=== PATIENT | female | born 1985 | race Caucasian/White ===

== ENCOUNTER 2019-10-11 15:54 | Inpatient (IN) ==
[2019-10-11] MEDS ORDERED: LACTATED RINGER'S 1,000 ML IV SCH ×2 (16:15→17:05)
[2019-10-11] MEDS ORDERED: CITRIC ACID/SODIUM CITRATE 15 ML UDC PO SCH (16:30)
[2019-10-11] MEDS ORDERED: CEFAZOLIN 2000MG 2,000 MG/15 ML SYR IV SCH (16:30)
--- NOTE | 2019-10-11 16:44 | History & Physical Report ---
Date of Service October 11, 2019 Assessment & Plan (1) No care in current : Patient is 40wk GA with a fetus measuring 36 weeks and anhydramnios. Prior x2. Plan for immediate section; start time expected 6pm per anesthesia due to other patient emergencies occurring at this time on their service. Will attempt to get full lab panel as well as tox screen, COVID rapid test, GBS unknown, swabbed on admission for peds info, but will get preop abx. (2) Oligohydramnios antepartum: (3) Drug dependence affecting , antepartum: (4) Supervision of elderly multigravida, antepartum: (5) Previous delivery affecting , antepartum: Admission and Anticipated Discharge Date Admission Date: October 11, 2019 History of Present Illness Chief Complaint: 34yo (TAB by mifepristone, C/S for NRFHT, RCS both with FOB1, current preg FOB2) at 40.5 wk gestation by certain LMP. Patient presented to office today for NOB visit having received NO prior care in this . She became aware of her in the 8wk range but planned termination as she was using IV meth, FOB was incarcerated, she was depressed, she was smoking 1/2ppd, etc. She never did terminate and became embarrassed about the lack of care as well as fearful of costs of care, so did not reach out for care until recently. She knew she would need a . Therefore she was brought to our office today for the NOB visit and US. The scan showed 36 week , grade 3 placenta and anhydramnios. The patient is not aware of her water being broken. She has no contractions. She does feel FM. She notes her last use of meth was "several months ago." She also used to get her subutex, 2mg PO daily, from [facility] but hasn't seen them "in a long time," and has been getting her subutex on the street but states she is truly and consistently taking only 2mg per day, as well as vitamins most days. She last ate solid food at breakfast and had gatorade in the last few hours. Primary Care Provider: Veronica Mo MD Allergies Allergy/AdvReac Type Severity Reaction Status Date / Time No Known Allergies Allergy Verified 10/11/19 16:13 Home Medications Home Medications Medication Instructions Recorded Confirmed Type prenat.vits,pio,ufp-ezxr-evjed 1 tab PO DAILY 09/21/19 10/11/19 History buprenorphine HCl 2 mg sublingual 2 mg SL DAILY 10/11/19 10/11/19 History tablet Patient History Medical History (Updated 10/11/19 @ 15:26 by Mike Haynes Jr, MD, FACOG) Anxiety and depression Elective Medical Hx of varicella Supervision of normal intrauterine in multigravida Family History (Updated 09/21/19 @ 11:01 by Lissette Tinoco) Other Hypertension Thyroid disease Social History (Updated 09/21/19 @ 11:02 by Lissette Tinoco) Preferred Language: Italian Communication Ability: Effective Beliefs That Will Affect Care: None and Mandaen Mandaen Beliefs: Congregational marital status: Single marital status details: FOJavier Pierson (40) [phone] Current Living Situation: Family Current Living Situation Comment: lives with FOB, no pets current occupational status: unemployed Other Information That Helps Us Care for You: No Feels Safe at Home: Yes Safety Concerns: Feels Safe At This Time Smoking Status: Current every day smoker Tobacco Type: cigarettes ; Cigarettes Per Day: 5 ; Do You Dip or Chew Tobacco: No ; Second Hand Exposure: Yes ; Tobacco Cessation Education Requested by Patient: Yes Hx Alcohol Use: No Hx Substance Use: Yes substance use type: IV drugs and methamphetamine Last Used Substance: Unknown Last Used Substance Other:: "months ago" Review of Systems All systems reviewed & are unremarkable except as noted in HPI & below Physical Exam Constitutional: WD/WN, vitals as above Eyes: PERRL, conjunctivae normal, anicteric sclerae ENMT: external ear and nose normal, oropharynx normal Neck: supple Respiratory: normal respiratory effort and able to speak in complete sentences; no respiratory distress Cardiovascular: Rate/Rhythm: regular rate and regular rhythm Gastrointestinal (Abdomen): Gravid / AGA, nontender Musculoskeletal: no cyanosis or clubbing, extremities motor strength 5/5 Skin: no rashes, warm and dry Neurologic: patellar DTR's 2+ bilat, sensation intact Psychiatric: A+Ox3, euthymic affect Genitourinary: Speculum/Bimanual Exam: no vaginal lesions, no vaginal bleeding and uterus nontender OB Exam Abdomen: + vertex and + estimated weight (5-6lb) OB Exam Monitor Tracing: + external FHT monitor used, + external uterine monitor used and + category I Lymphatic: no cervical or axillary lymphadenopathy Code Status & VTE Plan VTE Prophylaxis Plan VTE Prophylaxis will be ordered: Yes Coding Level of Care Code None Diagnoses No care in current O09.30 Oligohydramnios antepartum O41.00X0 Drug dependence affecting , antepartum O99.320 Supervision of elderly multigravida, antepartum O09.529 Previous delivery affecting , antepartum O34.219
[2019-10-11 16:46] LABS: Basophils # (auto) 0.02 K/uL (0-0.2); Basophils % (auto) 0.1 %; Eosinophils # (auto) 0.12 K/uL (0-0.5); Eosinophils % (auto) 0.8 %; Hematocrit (blood only) 29.9 % (37-47); Hemoglobin 9.8 g/dL (12.0-16.0); Immature Granulocytes # (auto) 0.08 K/uL (0.00-0.02); Immature Granulocytes % (auto) 0.5 %; Lymphocytes # (auto) 4.04 K/uL (1.2-3.4); Lymphocytes % (auto) 25.9 %; Mean Corpuscular Hemoglobin 26.2 pg (25-34); Mean Corpuscular Volume 79.9 fL (80-100); Mean Platelet Volume 10.8 fL (7.4-10.4); Monocytes # (auto) 0.85 K/uL (0.11-0.59); Monocytes % (auto) 5.5 %; Neutrophils # (auto) 10.47 K/uL (1.4-6.5); Neutrophils % (auto) 67.2 %; Platelet Count 280 K/uL (130-400); RDW Coefficient of Variation 13.4 % (11.5-14.5); RDW Standard Deviation 38.8 fL (36.4-46.3); Red Blood Count 3.74 M/uL (4.2-5.4); White Blood Count 15.58 K/uL (4.8-10.8)
[2019-10-11 17:05] LABS: Mean Corpuscular Hgb Conc 32.8 g/dL (32-36)
[2019-10-11 17:24] LABS: Rubella IgG Antibody Immune (Immune)
[2019-10-11 17:25] LABS: Hepatitis B Surface Antigen Neg (Neg)
[2019-10-11 17:55] LABS: Appearance Urine Clear (Clear); Bilirubin Urine Negative (Negative); Blood Urine Negative (Negative); Color Urine Yellow; Glucose Urine UA Negative (Negative); Ketones Urine Negative (Negative); Leukocyte Esterase Urine Negative (Negative); Nitrite Urine Negative (Negative); Protein Urine Negative (Negative); Specific Gravity Urine 1.005 (1.000-1.030); Urobilinogen Urine Negative (Negative); pH Urine 7.5 (4.5-7.5)
[2019-10-11] MEDS ORDERED: BUPIVACAINE 0.5 % 5 MG/1 ML MPF 30ML VIAL ONE (18:01)
[2019-10-11] MEDS ORDERED: BUPIVACAINE LIPOSOME 1.3% 266 MG/20 ML VIAL ONE (18:01)
--- NOTE | 2019-10-11 18:14 | Anesthesiology Consultation ---
Date of Service October 11, 2019 Assessment & Plan (1) Encounter for pre-operative examination: Chart Review Chart Review: Acceptable Risk for Surgery and Patient NOT seen in Pre Admission Testing Consults Requested none ASA ASA3 Proposed Anesthesia Anesthesia Type: MAC Spinal Regional Regional Laterality: Bilateral Site: Transversus Abdominal Plane Risk / Benefits Reviewed With: PT / POA / Parent / Guardian, Accepts Plan and Informed Consent Obtained History Surgery Operation Date: 10/11/19 16:10 Proposed Procedures p Section in LD - Grace Majano MD Operation Date: 10/12/19 07:30 Proposed Procedures p Section - Mike Haynes Jr, MD, FACOG Height/Weight Height: 5 ft 3 in Weight: 63.957 kg Allergies Allergy/AdvReac Type Severity Reaction Status Date / Time No Known Allergies Allergy Verified 10/11/19 16:13 Medications Home Medications Medication Instructions Recorded Confirmed Last Taken prenat.vits,pio,yvr-wzqi-leohs 1 tab PO DAILY 09/21/19 10/11/19 10/10/19 buprenorphine HCl 2 mg sublingual 2 mg SL DAILY 10/11/19 10/11/19 10/11/19 tablet Active Medications Generic Name Dose Route Start Last Admin Trade Name Freq PRN Reason Stop Dose Admin Citric Acid/Sodium Citrate 30 ml 10/11/19 16:30 10/11/19 18:12 Bicitra PO 10/11/19 23:59 30 ml TODAY@1630 MARIAN Administration Cefazolin Sodium 2,000 mg in 15 mls @ 3.75 mls/min 10/11/19 16:30 10/11/19 18:12 Ancef 2000mg IV 10/11/19 23:59 3.75 mls/min TODAY@1630 MARIAN Administration Protocol Lactated Ringer's 1,000 mls @ 125 mls/hr 10/11/19 17:05 10/11/19 17:31 Lr IV 11/10/19 17:04 125 mls/hr .Q8H MARIAN Administration NPO Date Last Intake of Fluids: 10/11/19 Time Last Intake of Fluids: 16:00 Date Last Intake of Solids: 10/11/19 Time Last Intake of Solids: 14:00 Past Medical History Medical History Anxiety and depression Elective Medical Hx of varicella Supervision of normal intrauterine in multigravida Exercise / Class Metabolic Activity II 4-5 Yardwork/Stairs/Walk up hill Past Family History Family History Other Hypertension Thyroid disease Past Surgical History Surgical History delivery delivered H/O shoulder surgery Tonsillectomy planned Past Anesthesia History No Hx of Anesthesia Complications and No Family Hx of Anesthesia Complications History of PONV No Hx of PONV and No Hx of Motion Sickness Social History Smoking Status: Current every day smoker tobacco type: cigarettes Smoking cigarettes per day: 5 Do You Dip or Chew Tobacco: No Hx Alcohol Use: No Hx Substance Use: Yes substance use type: IV drugs and methamphetamine Last Used Substance: Unknown Last Used Substance Other:: "months ago" Physical Exam Vital Signs Last Vital Signs Temp 37.1 C 10/11/19 16:35 Pulse 87 10/11/19 18:06 Resp 18 10/11/19 16:35 BP 126/75 10/11/19 17:32 Pulse Ox 98 10/11/19 18:06 ENMT Mouth: no dentition abnormality Thyromental Distance: > or= 3.5 Finger Breadths Mallampati Class: II Neck normal visual inspection Respiratory normal respiratory effort Auscultation: lungs clear to auscultation bilaterally Cardiovascular Rate/Rhythm: regular rate and regular rhythm Psychiatric Orientation: alert Testing Laboratory Results 10/11/19 16:26 Urine Color Yellow 10/11/19 17:25 Urine Appearance Clear (Clear) 10/11/19 17:25 Urine pH 7.5 (4.5-7.5) 10/11/19 17:25 Ur Specific Ringling 1.005 (1.000-1.030) 10/11/19 17:25 Urine Protein Negative (Negative) 10/11/19 17:25 Urine Glucose (UA) Negative (Negative) 10/11/19 17:25 Urine Ketones Negative (Negative) 10/11/19 17:25 Urine Nitrite Negative (Negative) 10/11/19 17:25 Ur Leukocyte Esterase Negative (Negative) 10/11/19 17:25 Blood Type A Positive 10/11/19 16:25 Antibody Screen NEGATIVE 10/11/19 16:25
[2019-10-11] MEDS ORDERED: ONDANSETRON INJ 2 MG/ML 2 ML VIAL ONE (18:15)
[2019-10-11] MEDS ORDERED: OXYTOCIN 10 UNITS/ML VIAL ONE (18:15)
[2019-10-11] MEDS ORDERED: MoRPHine SULFATE PF 1 MG/ML 10 ML AMP/VIAL ONE (18:15)
[2019-10-11 18:19] LABS: Amphetamines+Metham, Urine Neg (Neg); Barbiturates, Urine Neg (Neg); Benzodiazepine, Urine Neg (Neg); Cocaine, Urine Neg (Neg); MDMA (Ecstacy), Urine Neg (Neg); Methadone, Urine Neg (Neg); Opiate, Urine Neg (Neg); Phencyclidine, Urine Neg (Neg)
[2019-10-11] MEDS ORDERED: fentaNYL citrate 100 MCG/2 ML VIAL ONE (18:46)
[2019-10-11 19:06] LABS: Base Excess Cord Arterial Bld 1.4 mEq/L (-9-1.8); CO2 Cord Arterial Blood 52 mmHg (39.1-73.5); HCO3 Cord Arterial Blood 28 mmol/L (19.7-28.5); PO2 Cord Arterial Blood 20 mmHg (4.1-31.7); pH Cord Arterial Blood 7.35 (7.1-7.38)
[2019-10-11 19:10] LABS: Base Excess Cord Venous Blood -0.4 mEq/L (-7.7-1.9); Cord Venous Blood HCO3 25 mmol/L (18.4-26.8); Cord Venous Blood PCO2 41 mmHg (30.4-57.2); Cord Venous Blood PO2 27 mmHg (14.1-43.3); Cord Venous Blood pH 7.39 (7.20-7.44)
[2019-10-11 19:12] LABS: Oxygen Sat Cord Arterial Blood < 60.0 % (<60)
--- NOTE | 2019-10-11 19:17 | Operative Report ---
PG Post Operative Report Pre & Post Diagnosis Operation Date: 10/11/19 18:00 Pre-Op Diagnosis: Hx of Section x2; no care; anhydramnios Post-Op Diagnosis: Hx of Section x2; no care; anhydramnios; Operation Date: 10/12/19 07:30 <No data on this case meets the specified criteria> I identified the patient and participated in the time-out.: Yes Procedure Operation Date: 10/11/19 18:00 Actual Procedures p Section in LD; delivery of live male child at 1837 - Grace Majano MD Operation Date: 10/12/19 07:30 <No data on this case meets the specified criteria> Surgeon Grace Majano MD Vc++ Developer Ivy Estimated Blood Loss 600 Findings Consistent with Post-Op Diagnosis Specimens Cord blood, Cord gases, Placenta for exam Anesthesia Type Spinal Complications none Disposition Accompanied Patient To Recovery: Yes Disposition: L&D Description of Procedure The patient was brought to the operating room and placed on the table in the supine position with a leftward tilt, then prepped and draped in standard sterile fashion. A hard time out was taken prior to proceeding. A pfannensteil incision was created sharply and carried down to the fascia using bovie electrocautery. The fascia was nicked and then extended using selby scissors. The edges of the fascia were grasped with Remigio clamps and elevated, then sharply and bluntly dissected off the underlying rectus. The midline of the rectus was identified and bluntly . The peritoneum was bluntly entered, and this entry was extended using pressure from the surgeon's hands. The bladder retractor was placed and the lower uterine segment was examined and found to be well developed. A bladder flap was created and the retractor was replaced behind this flap to protect the bladder. A transverse lower uterine incision was then created, with final entry to the uterine cavity made in a blunt manner with the surgeon's finger. Thick meconium was encountered; there was minimal if any liquid. The head was elevated to the incision and delivered using mild fundal pressure. The cord was doubly clamped and cut, then the vigorous infant was taken to the warmer for dinking machine operator care. The placenta was manually extracted, then the uterus was gently exteriorized from the maternal abdomen. The cavity was cleared of clot and debris using a dry lap sponge. The angles of the incision were identified with allis clamps, and the hysterotomy was then repaired in running locked fashion using 0-vicryl suture, followed by a second imbricating layer. Chelsey was applied to ensure lasting hemostasis. Note that the lower uterine segment was extremely thin and this was discussed with the patient, along with the risks this may confer if she carries future pregnancies. The tubes and ovaries were examined and found to be normal bilaterally. The posterior gutter was irrigated and cleared of clot and debris. The uterus was then gently re-internalized to the abdomen. Lateral gutters were cleared of clot and debris using a damp lap sponge, and a final exam of the hysterotomy revealed good hemostasis. The rectus muscles were allowed to reapproximate naturally. The angle of the fascia was grasped with a Remigio clamp and the fascia was then repaired in running non-locked fashion with 1- vicryl suture. At the completion of repair, the fascia was examined and found to be free of any defect. The subcutaneous tissue was copiously irrigated and then reapproximated using 3-0 chromic. The skin was then closed using 4-0 monocryl in a running subcuticular fashion and a dermabond dressing was applied. The hart was noted to be draining clear yellow urine as the patient was transferred back to her recovery room. I attest to the content of the Intraoperative Record and any orders documented therein. Any exceptions are noted below.
[2019-10-11] MEDS ORDERED: BENZOCAINE 20% AER SPR 82.5 GM CAN EXT PRN (19:23)
[2019-10-11] MEDS ORDERED: DIPHTHERIA/TETANUS/PERTUSSIS 0.5 ML SYR/VIAL IM ONE (19:23)
[2019-10-11] MEDS ORDERED: SUPERCREAM 0.870% 15 GM JAR EXT PRN (19:23)
[2019-10-11] MEDS ORDERED: ONDANSETRON INJ 2 MG/ML 2 ML VIAL IV PRN ×2 (19:23→21:37)
[2019-10-11] MEDS ORDERED: HYDROCORTISONE ACETATE 25 MG SUPP PR PRN (19:23)
[2019-10-11] MEDS ORDERED: MAGNESIUM HYDROXIDE SUSP 30 ML UDC PO PRN (19:23)
[2019-10-11] MEDS ORDERED: SENNA 8.6 MG TAB PO PRN (19:23)
[2019-10-11] MEDS ORDERED: OXYTOCIN 30 UNITS in LACTATED RINGER'S 1,000 ML IV SCH (19:30)
--- NOTE | 2019-10-11 19:40 | Anesthesiology Progress Note ---
Date of Service October 11, 2019 Anesthesia Post Procedure Vital Signs Vital Signs: Temp Pulse Resp BP Pulse Ox 10/11/19 19:35 69 177/83 H 10/11/19 19:34 74 100 10/11/19 19:30 93 H 81 L 10/11/19 19:29 81 100 10/11/19 19:24 84 144/90 H 100 10/11/19 18:06 87 98 10/11/19 18:01 89 98 10/11/19 17:56 80 98 10/11/19 17:51 93 H 98 10/11/19 17:46 93 H 99 10/11/19 17:41 75 97 10/11/19 17:36 74 97 10/11/19 17:32 85 126/75 10/11/19 17:31 93 H 100 10/11/19 17:16 84 97 10/11/19 17:11 97 H 98 10/11/19 17:06 80 98 10/11/19 17:01 85 98 10/11/19 16:56 96 H 98 10/11/19 16:51 93 H 97 10/11/19 16:46 89 98 10/11/19 16:35 37.1 C 18 Transfer of Care Handoff Completed per policy Notes Mental Status: alert / awake / arousable Patient Amnestic to Procedure: Yes Nausea / Vomiting: adequately controlled Pain: adequately controlled Airway Patency, RR, SpO2: stable & adequate BP & HR: stable & adequate Hydration State: stable & adequate Neuraxial Anesthesia: was administered and sensory block is resolving Anesthetic Complications: no major complications apparent Notes: block working well in pacu
[2019-10-11 20:12] LABS: INR 0.9 (0.9-1.1); Partial Thromboplastin Ratio 0.9; Partial Thromboplastin Time 25.9 Seconds (21.0-31.0); Prothrombin Time 9.6 Seconds (9.0-12.0)
[2019-10-11 20:37] LABS: Alanine Aminotransferase 10 U/L (12-78); Albumin Level 2.4 gm/dl (3.4-5.0); Aspartate Aminotransferase 8 U/L (15-37); BUN Creatinine Ratio 6.5 (10-20); Bilirubin Direct < 0.1 mg/dl (0-0.2); Blood Urea Nitrogen 4 mg/dl (7-18); Calcium 8.5 mg/dl (8.5-10.1); Carbon Dioxide 25 mmol/L (21-32); Chloride 105 mmol/L (98-107); Creatinine Clr Calc Pharmacy 117.8 ml/min; Est GFR (African American) 136.9; Est GFR (Non-African American) 118.1; Glucose 78 mg/dl (70-99); Potassium 3.8 mmol/L (3.5-5.1); Sodium 136 mmol/L (136-145)
[2019-10-11 20:38] LABS: Albumin Globulin Ratio 0.5 (0.9-2); Bilirubin,Total 0.3 mg/dl (0.2-1); Globulin 4.8 gm/dl (2.5-4.0); Total Protein 7.2 gm/dl (6.4-8.2)
[2019-10-11 20:47] LABS: Alkaline Phosphatase 270 U/L (45-117)
[2019-10-11] MEDS: DOCUSATE SODIUM 100 MG CAP PO SCH ×2 (21:33→21:54)
[2019-10-11] MEDS: SIMETHICONE 80 MG CHEW PO SCH (21:33)
[2019-10-11] MEDS ORDERED: MoRPHine SULFATE PF 1 MG/ML 10 ML AMP/VIAL INT SPINAL ONE (21:37)
[2019-10-11] MEDS ORDERED: MoRPHine SULFATE 2 MG/ML CARP IV PRN (21:37)
[2019-10-11] MEDS ORDERED: ePHEDrine sulfate 50 MG/ML AMP IV PRN (21:37)
[2019-10-11] MEDS ORDERED: PROMETHAZINE HCL 6.25 MG in SODIUM CHLORIDE 0.9% 50 ML IV PRN (21:37)
[2019-10-11] MEDS ORDERED: NALOXONE HCL 0.08 MG in SYRINGE 1.8 ML IV PRN (21:37)
[2019-10-11] MEDS ORDERED: NALOXONE HCL 0.4 MG/1 ML VIAL/CARP IV PRN (21:37)
[2019-10-11] MEDS ORDERED: DiphenhydrAMINE HCL 50 MG/ML VIAL IV PRN (21:37)
[2019-10-11] MEDS ORDERED: KETOROLAC 30 MG/ML VIAL IV PRN (21:37)
[2019-10-11] MEDS ORDERED: LACTATED RINGER'S 500 ML IV PRN (21:37)
[2019-10-11] MEDS ORDERED: NALOXONE HCL 1 MG in SODIUM CHLORIDE 0.9% 1000ML 1,000 ML IV PRN (21:37)
[2019-10-11] MEDS ORDERED: HYDROmorphone INJ 0.5 MG/0.5 ML SYR IV PRN (21:37)
[2019-10-11] MEDS ORDERED: MEPERIDINE HCL 25 MG/ML CARP/VIAL IV PRN (21:37)
[2019-10-11] MEDS ORDERED: SODIUM CHLORIDE 0.9% 1000ML 1,000 ML IV SCH (21:45)
[2019-10-11] MEDS ORDERED: NO NARCOTICS OR SEDATIVES SCH (21:45)
--- NOTE | 2019-10-11 21:56 | Hospitalist Consultation ---
Date of Consultation October 11, 2019 Assessment & Plan (1) Drug dependence affecting , antepartum: Alexandria Kapoor is a 34y/o F s/p RLT at 40 weeks 5 days, 2 prior C-sections, this complicated by no care, use of IV methamphetamines, use of Subutex bought off the street. Drug-dependence during : - Patient states he was using 2 mg Subutex daily, she has been using this daily more or less since she was in her early to mid 20s - Previously was receiving 2 mg p.o. Subutex from [facility] in [place] - Discussed administration with pharmacy, as team does not have licensed provider for Subutex - Will continue 2 mg Subutex for 72 hours during hospitalization; after this time patient will need to have following doses from established licensed provider - As she was not formally kicked out of [facility], consideration should be to restart her care through them first as this might expedite the process - Case management consulted for establishment of child services following no care during Hep C antibody test positive: - Following last , patient had negative hep C testing at that time. - Does have known exposure with previous partner having hep C, last saw him 2 years ago - Current partner (FOB) does not have confirmed hep C - We will need established care with PCP for future treatments - Hep C RNA qualitative pending - Uncertain timeline of when retroviral treatments for Hep C can be started post s/p : - POD #0, routine care per OB group (2) Hepatitis C antibody test positive: (3) Supervision of elderly multigravida, antepartum: Supervising Physician Co-Signing Physician Notes Patient seen and examined, chart reviewed, case discussed with Dr. Barrientos and I agree with his assessment and plan as documented above. Briefly, patient is a 34yo female s/p RLT at 40 weeks and 5 days. Patient received no care. Patient with history of substance abuse, in the remote past she used IV opiates, most recently IV methamphetamine. She reports being on Subutex since the age of 21. She initially obtained them from her boyfriend who had a prescription - they would split the pills between them. She was later seen at [facility] in [place] but has stopped being seen there. She reports buying the Subutex off the street - she typically buys 8mg pills and splits them into quarters and takes appx 2mg daily. On exam she is well appearing, NAD, abdominal incision well approximated, no bleeding/drainage/dehiscence HEENT - NC/AT, PERRL, EOMI, MMM Heart - +S1/S2, regular, no m/r/g Lungs - CTA Abd - +BS, low transverse incision well approximated with glue, no bleeding/drainage/dehiscence Ext - no edema Labs and images reviewed Assessment/Plan: -Will continue Subutex while inpatient - 2mg po daily. Will place Case management consultation to assist with outpatient followup, preferably at [facility] as she is known to that site -Outpatient workup and treatment of HCV -Remainder of recommendations as above History of Present Illness Reason for Consultation: Subutex, HepC Attending Physician: Grace Majano MD History of Present Illness Alexandria Kapoor is a 34y/o F s/p RLT at 40 weeks 5 days, 2 prior C- sections, this complicated by no care, use of IV methamphetamines, use of Subutex bought off the street. Hospitalist consulted for Subutex management and recent hep C diagnosis. Throughout this she continue to use Subutex 2 mg daily, she states that she gets 4 days worth at a time splits it up into quarters and then will take each quarter daily. Previously was on Subutex through [facility] in [place]; however, stopped attending his appointments when she restarted using IV drugs as she knew she would not pass their urine drug test. Believes the last time she was seen by [facility], was approximately 6+ months ago. States that she has been on Subutex daily at minimum since her mid 20s, with maximum amount of time being off Subutex being 1 to 2 days. Most recently this was 2 weeks ago, during that time she did not feel any ill effects from being off the Subutex, as she continues to have troubles and shakes and sweats regardless of the dose of Subutex that she takes daily. Is aware that her previous partner was positive for hepatitis C, but has not seen him in the last 2 years. Knows that following her second (2009), she tested negative for hepatitis C at that time, but continue to be without partner up until 2 years ago. They would sporadically utilize IV drugs, and this has continued for the patient following the break-up of that relationship. Current partner stated to be hepatitis C negative. Denies jaundice, yellowing of skin or eyes, increased abdominal girth (outside of ) upper abdominal pain, lower extremity edema, cough, shortness of breath, fatigue, malaise, easy bruisability, easy bleeding. Social: Admits to half pack a day tobacco use, admits to IV meth use (last use months ago), denies marijuana, cocaine, ecstasy, heroin. Family history: Hypothyroidism Allergies Allergy/AdvReac Type Severity Reaction Status Date / Time No Known Allergies Allergy Verified 10/11/19 16:13 Home Medications Home Medications Medication Instructions Recorded Confirmed Type prenat.vits,pio,eed-bqlz-mynyt 1 tab PO DAILY 09/21/19 10/11/19 History buprenorphine HCl 2 mg sublingual 2 mg SL DAILY 10/11/19 10/11/19 History tablet Patient History Medical History (Updated 10/11/19 @ 21:35 by Júnior Barrientos MD) Anxiety and depression Elective Medical Hx of varicella Supervision of normal intrauterine in multigravida Surgical History (Updated 10/11/19 @ 19:07 by Corrine Vizcaino RN) delivery delivered H/O shoulder surgery Hx of tonsillectomy Tonsillectomy planned Family History Other Hypertension Thyroid disease Social History (Updated 09/21/19 @ 11:02 by Lissette Tinoco) Preferred Language: Citizen Of [place] Communication Ability: Effective Beliefs That Will Affect Care: None and Rastafarian Rastafarian Beliefs: Taoism marital status: Single marital status details: CORNELL Pierson (40) [phone] Current Living Situation: Family Current Living Situation Comment: lives with FOB, no pets current occupational status: unemployed Other Information That Helps Us Care for You: No Feels Safe at Home: Yes Safety Concerns: Feels Safe At This Time Smoking Status: Current every day smoker Tobacco Type: cigarettes ; Cigarettes Per Day: 5 ; Do You Dip or Chew Tobacco: No ; Second Hand Exposure: Yes ; Tobacco Cessation Education Requested by Patient: Yes Hx Alcohol Use: No Hx Substance Use: Yes substance use type: IV drugs and methamphetamine Last Used Substance: Unknown Last Used Substance Other:: "months ago" Review of Systems Review of Systems: All systems reviewed & are unremarkable except as noted in HPI & below Physical Exam Constitutional: WD/WN, vitals as above Eyes: PERRL, conjunctivae normal, anicteric sclerae Respiratory: normal respiratory effort, lungs clear to auscultation Cardiovascular: Rate/Rhythm: regular rate and regular rhythm Heart Sounds: no gallop, no murmur and no cardiac rub Vessels: no JVD Extremities: no pedal edema Gastrointestinal (Abdomen): Inspection/Auscultation: normal bowel sounds and + abdominal surgical incision (low-transverse intact with surgical glue); abdomen not distended Percussion/Palpation: + abdomen tender (over uterine fundus) and abdomen soft; no hepatosplenomegaly Skin: no rashes, warm and dry Psychiatric: A+Ox3, euthymic affect Results & Data Results & Data ([facility] [place]) Vital Signs (Past 12 Hours) Vital Signs Temp Pulse Resp BP Pulse Ox 10/11/19 21:26 80 195/96 H 10/11/19 21:24 86 97 10/11/19 21:19 72 97 10/11/19 21:14 66 97 10/11/19 21:09 75 97 10/11/19 21:04 77 100 10/11/19 20:59 87 99 10/11/19 20:56 83 132/113 H 10/11/19 20:54 83 99 10/11/19 20:49 77 99 10/11/19 20:44 72 98 10/11/19 20:39 68 99 10/11/19 20:34 69 99 10/11/19 20:30 18 10/11/19 20:29 71 100 10/11/19 20:25 69 18 182/100 H 10/11/19 20:24 70 99 10/11/19 20:19 79 99 10/11/19 20:15 66 18 182/99 H 10/11/19 20:14 66 99 10/11/19 20:09 75 98 10/11/19 20:06 67 182/82 H 10/11/19 20:05 18 10/11/19 20:04 73 99 10/11/19 19:59 73 98 10/11/19 19:55 80 18 166/89 H 10/11/19 19:54 69 98 10/11/19 19:49 76 99 10/11/19 19:45 71 18 173/87 H 10/11/19 19:44 69 100 10/11/19 19:39 75 100 10/11/19 19:35 69 18 177/83 H 10/11/19 19:34 74 100 10/11/19 19:30 93 H 81 L 10/11/19 19:29 81 100 10/11/19 19:25 36.7 C 16 10/11/19 19:24 84 144/90 H 100 10/11/19 18:06 87 98 10/11/19 18:01 89 98 10/11/19 17:56 80 98 10/11/19 17:51 93 H 98 10/11/19 17:46 93 H 99 10/11/19 17:41 75 97 10/11/19 17:36 74 97 10/11/19 17:32 85 126/75 10/11/19 17:31 93 H 100 10/11/19 17:16 84 97 10/11/19 17:11 97 H 98 10/11/19 17:06 80 98 10/11/19 17:01 85 98 10/11/19 16:56 96 H 98 10/11/19 16:51 93 H 97 10/11/19 16:46 89 98 10/11/19 16:35 37.1 C 18 Laboratory Results 10/11/19 10/11/19 10/11/19 Range/Units 18:37 18:37 17:25 WBC (4.8-10.8) K/uL RBC (4.2-5.4) M/uL Hgb (12.0-16.0) g/dL Hct (37-47) % MCV (80-100) fL MCH (25-34) pg MCHC (32-36) g/dL RDW Std Deviation (36.4-46.3) fL RDW Coeff of Pedro (11.5-14.5) % Plt Count (130-400) K/uL MPV (7.4-10.4) fL Immature Gran % (Auto) % Neut % (Auto) % Lymph % (Auto) % [place] % (Auto) % Eos % (Auto) % Baso % (Auto) % Neut # (Auto) (1.4-6.5) K/uL Lymph # (Auto) (1.2-3.4) K/uL [place] # (Auto) (0.11-0.59) K/uL Eos # (Auto) (0-0.5) K/uL Baso # (Auto) (0-0.2) K/uL Immature Gran # (Auto) (0.00-0.02) K/uL PT (9.0-12.0) Seconds INR (0.9-1.1) APTT (21.0-31.0) Seconds PTT Ratio Cord ABG pH 7.35 (7.1-7.38) Cord ABG pCO2 52 (39.1-73.5) mmHg Cord ABG pO2 20 (4.1-31.7) mmHg Cord ABG HCO3 28 (19.7-28.5) mmol/L Cord ABG Base Excess 1.4 (-9-1.8) mEq/L Cord ABG O2 Sat < 60.0 (<60) % Cord VBG pH 7.39 (7.20-7.44) Cord VBG pCO2 41 (30.4-57.2) mmHg Cord VBG pO2 27 (14.1-43.3) mmHg Cord VBG HCO3 25 (18.4-26.8) mmol/L Cord VBG Base Excess -0.4 (-7.7-1.9) mEq/L Cord VBG O2 Sat 62.0 (<68) % Barometric Pressure 730.0 730.2 mm/Hg Blood Gas Comments TRINIDAD TRINIDAD Sodium (136-145) mmol/L Potassium (3.5-5.1) mmol/L Chloride (98-107) mmol/L Carbon Dioxide (21-32) mmol/L Anion Gap (3-11) BUN (7-18) mg/dl Creatinine (0.6-1.2) mg/dl Est Cr Clr Drug Dosing ml/min Est GFR ( Amer) Est GFR (Non-Af Amer) BUN/Creatinine Ratio (10-20) Glucose (70-99) mg/dl Estimat Average Glucose Hemoglobin A1c Calcium (8.5-10.1) mg/dl Total Bilirubin (0.2-1) mg/dl Direct Bilirubin (0-0.2) mg/dl AST (15-37) U/L ALT (12-78) U/L Alkaline Phosphatase (45-117) U/L Total Protein (6.4-8.2) gm/dl Albumin (3.4-5.0) gm/dl Globulin (2.5-4.0) gm/dl Albumin/Globulin Ratio (0.9-2) Urine Color Urine Appearance (Clear) Urine pH (4.5-7.5) Ur Specific [place] (1.000-1.030) Urine Protein (Negative) Urine Glucose (UA) (Negative) Urine Ketones (Negative) Urine Blood (Negative) Urine Nitrite (Negative) Urine Bilirubin (Negative) Urine Urobilinogen (Negative) Ur Leukocyte Esterase (Negative) Urine Opiates Screen Neg (Neg) Ur Methadone, Qual Neg (Neg) Urine Barbiturates Neg (Neg) Ur Phencyclidine (PCP) Neg (Neg) U Amphetamin/Meth Scrn Neg (Neg) MDMA (Ecstasy) Screen Neg (Neg) U Benzodiazepines Scrn Neg (Neg) Ur Cocaine Metabolite Neg (Neg) U Marijuana (THC) Screen Neg (Neg) RPR COVID-19 PCR (Negative) Hep Bs Antigen (Neg) Hepatitis C Antibody (Neg) HCV RNA Qual (TMA) HIV 1&2 Ab/P24 Ag 4thGn (Neg) Rubella IgG Antibody (Immune) Blood Type Antibody Screen 10/11/19 10/11/19 10/11/19 Range/Units 17:25 16:28 16:26 WBC (4.8-10.8) K/uL RBC (4.2-5.4) M/uL Hgb (12.0-16.0) g/dL Hct (37-47) % MCV (80-100) fL MCH (25-34) pg MCHC (32-36) g/dL RDW Std Deviation (36.4-46.3) fL RDW Coeff of Pedro (11.5-14.5) % Plt Count (130-400) K/uL MPV (7.4-10.4) fL Immature Gran % (Auto) % Neut % (Auto) % Lymph % (Auto) % [place] % (Auto) % Eos % (Auto) % Baso % (Auto) % Neut # (Auto) (1.4-6.5) K/uL Lymph # (Auto) (1.2-3.4) K/uL [place] # (Auto) (0.11-0.59) K/uL Eos # (Auto) (0-0.5) K/uL Baso # (Auto) (0-0.2) K/uL Immature Gran # (Auto) (0.00-0.02) K/uL PT (9.0-12.0) Seconds INR (0.9-1.1) APTT (21.0-31.0) Seconds PTT Ratio Cord ABG pH (7.1-7.38) Cord ABG pCO2 (39.1-73.5) mmHg Cord ABG pO2 (4.1-31.7) mmHg Cord ABG HCO3 (19.7-28.5) mmol/L Cord ABG Base Excess (-9-1.8) mEq/L Cord ABG O2 Sat (<60) % Cord VBG pH (7.20-7.44) Cord VBG pCO2 (30.4-57.2) mmHg Cord VBG pO2 (14.1-43.3) mmHg Cord VBG HCO3 (18.4-26.8) mmol/L Cord VBG Base Excess (-7.7-1.9) mEq/L Cord VBG O2 Sat (<68) % Barometric Pressure mm/Hg Blood Gas Comments Sodium (136-145) mmol/L Potassium (3.5-5.1) mmol/L Chloride (98-107) mmol/L Carbon Dioxide (21-32) mmol/L Anion Gap (3-11) BUN (7-18) mg/dl Creatinine (0.6-1.2) mg/dl Est Cr Clr Drug Dosing ml/min Est GFR ( Amer) Est GFR (Non-Af Amer) BUN/Creatinine Ratio (10-20) Glucose (70-99) mg/dl Estimat Average Glucose Pending Hemoglobin A1c Pending Calcium (8.5-10.1) mg/dl Total Bilirubin (0.2-1) mg/dl Direct Bilirubin (0-0.2) mg/dl AST (15-37) U/L ALT (12-78) U/L Alkaline Phosphatase (45-117) U/L Total Protein (6.4-8.2) gm/dl Albumin (3.4-5.0) gm/dl Globulin (2.5-4.0) gm/dl Albumin/Globulin Ratio (0.9-2) Urine Color Yellow Urine Appearance Clear (Clear) Urine pH 7.5 (4.5-7.5) Ur Specific [place] 1.005 (1.000-1.030) Urine Protein Negative (Negative) Urine Glucose (UA) Negative (Negative) Urine Ketones Negative (Negative) Urine Blood Negative (Negative) Urine Nitrite Negative (Negative) Urine Bilirubin Negative (Negative) Urine Urobilinogen Negative (Negative) Ur Leukocyte Esterase Negative (Negative) Urine Opiates Screen (Neg) Ur Methadone, Qual (Neg) Urine Barbiturates (Neg) Ur Phencyclidine (PCP) (Neg) U Amphetamin/Meth Scrn (Neg) MDMA (Ecstasy) Screen (Neg) U Benzodiazepines Scrn (Neg) Ur Cocaine Metabolite (Neg) U Marijuana (THC) Screen (Neg) RPR COVID-19 PCR (Negative) Hep Bs Antigen (Neg) Hepatitis C Antibody (Neg) HCV RNA Qual (TMA) Pending HIV 1&2 Ab/P24 Ag 4thGn (Neg) Rubella IgG Antibody (Immune) Blood Type Antibody Screen 10/11/19 10/11/19 10/11/19 Range/Units 16:26 16:26 16:26 WBC 15.58 H (4.8-10.8) K/uL RBC 3.74 L (4.2-5.4) M/uL Hgb 9.8 L (12.0-16.0) g/dL Hct 29.9 L (37-47) % MCV 79.9 L (80-100) fL MCH 26.2 (25-34) pg MCHC 32.8 (32-36) g/dL RDW Std Deviation 38.8 (36.4-46.3) fL RDW Coeff of Pedro 13.4 (11.5-14.5) % Plt Count 280 (130-400) K/uL MPV 10.8 H (7.4-10.4) fL Immature Gran % (Auto) 0.5 % Neut % (Auto) 67.2 % Lymph % (Auto) 25.9 % [place] % (Auto) 5.5 % Eos % (Auto) 0.8 % Baso % (Auto) 0.1 % Neut # (Auto) 10.47 H (1.4-6.5) K/uL Lymph # (Auto) 4.04 H (1.2-3.4) K/uL [place] # (Auto) 0.85 H (0.11-0.59) K/uL Eos # (Auto) 0.12 (0-0.5) K/uL Baso # (Auto) 0.02 (0-0.2) K/uL Immature Gran # (Auto) 0.08 H (0.00-0.02) K/uL PT (9.0-12.0) Seconds INR (0.9-1.1) APTT (21.0-31.0) Seconds PTT Ratio Cord ABG pH (7.1-7.38) Cord ABG pCO2 (39.1-73.5) mmHg Cord ABG pO2 (4.1-31.7) mmHg Cord ABG HCO3 (19.7-28.5) mmol/L Cord ABG Base Excess (-9-1.8) mEq/L Cord ABG O2 Sat (<60) % Cord VBG pH (7.20-7.44) Cord VBG pCO2 (30.4-57.2) mmHg Cord VBG pO2 (14.1-43.3) mmHg Cord VBG HCO3 (18.4-26.8) mmol/L Cord VBG Base Excess (-7.7-1.9) mEq/L Cord VBG O2 Sat (<68) % Barometric Pressure mm/Hg Blood Gas Comments Sodium (136-145) mmol/L Potassium (3.5-5.1) mmol/L Chloride (98-107) mmol/L Carbon Dioxide (21-32) mmol/L Anion Gap (3-11) BUN (7-18) mg/dl Creatinine (0.6-1.2) mg/dl Est Cr Clr Drug Dosing ml/min Est GFR ( Amer) Est GFR (Non-Af Amer) BUN/Creatinine Ratio (10-20) Glucose (70-99) mg/dl Estimat Average Glucose Hemoglobin A1c Calcium (8.5-10.1) mg/dl Total Bilirubin (0.2-1) mg/dl Direct Bilirubin (0-0.2) mg/dl AST (15-37) U/L ALT (12-78) U/L Alkaline Phosphatase (45-117) U/L Total Protein (6.4-8.2) gm/dl Albumin (3.4-5.0) gm/dl Globulin (2.5-4.0) gm/dl Albumin/Globulin Ratio (0.9-2) Urine Color Urine Appearance (Clear) Urine pH (4.5-7.5) Ur Specific [place] (1.000-1.030) Urine Protein (Negative) Urine Glucose (UA) (Negative) Urine Ketones (Negative) Urine Blood (Negative) Urine Nitrite (Negative) Urine Bilirubin (Negative) Urine Urobilinogen (Negative) Ur Leukocyte Esterase (Negative) Urine Opiates Screen (Neg) Ur Methadone, Qual (Neg) Urine Barbiturates (Neg) Ur Phencyclidine (PCP) (Neg) U Amphetamin/Meth Scrn (Neg) MDMA (Ecstasy) Screen (Neg) U Benzodiazepines Scrn (Neg) Ur Cocaine Metabolite (Neg) U Marijuana (THC) Screen (Neg) RPR Pending COVID-19 PCR (Negative) Hep Bs Antigen (Neg) Hepatitis C Antibody (Neg) HCV RNA Qual (TMA) HIV 1&2 Ab/P24 Ag 4thGn Neg (Neg) Rubella IgG Antibody (Immune) Blood Type Antibody Screen 10/11/19 10/11/19 10/11/19 Range/Units 16:26 16:25 16:25 WBC (4.8-10.8) K/uL RBC (4.2-5.4) M/uL Hgb (12.0-16.0) g/dL Hct (37-47) % MCV (80-100) fL MCH (25-34) pg MCHC (32-36) g/dL RDW Std Deviation (36.4-46.3) fL RDW Coeff of Pedro (11.5-14.5) % Plt Count (130-400) K/uL MPV (7.4-10.4) fL Immature Gran % (Auto) % Neut % (Auto) % Lymph % (Auto) % [place] % (Auto) % Eos % (Auto) % Baso % (Auto) % Neut # (Auto) (1.4-6.5) K/uL Lymph # (Auto) (1.2-3.4) K/uL [place] # (Auto) (0.11-0.59) K/uL Eos # (Auto) (0-0.5) K/uL Baso # (Auto) (0-0.2) K/uL Immature Gran # (Auto) (0.00-0.02) K/uL PT (9.0-12.0) Seconds INR (0.9-1.1) APTT (21.0-31.0) Seconds PTT Ratio Cord ABG pH (7.1-7.38) Cord ABG pCO2 (39.1-73.5) mmHg Cord ABG pO2 (4.1-31.7) mmHg Cord ABG HCO3 (19.7-28.5) mmol/L Cord ABG Base Excess (-9-1.8) mEq/L Cord ABG O2 Sat (<60) % Cord VBG pH (7.20-7.44) Cord VBG pCO2 (30.4-57.2) mmHg Cord VBG pO2 (14.1-43.3) mmHg Cord VBG HCO3 (18.4-26.8) mmol/L Cord VBG Base Excess (-7.7-1.9) mEq/L Cord VBG O2 Sat (<68) % Barometric Pressure mm/Hg Blood Gas Comments Sodium (136-145) mmol/L Potassium (3.5-5.1) mmol/L Chloride (98-107) mmol/L Carbon Dioxide (21-32) mmol/L Anion Gap (3-11) BUN (7-18) mg/dl Creatinine (0.6-1.2) mg/dl Est Cr Clr Drug Dosing ml/min Est GFR ( Amer) Est GFR (Non-Af Amer) BUN/Creatinine Ratio (10-20) Glucose (70-99) mg/dl Estimat Average Glucose Hemoglobin A1c Calcium (8.5-10.1) mg/dl Total Bilirubin (0.2-1) mg/dl Direct Bilirubin (0-0.2) mg/dl AST (15-37) U/L ALT (12-78) U/L Alkaline Phosphatase (45-117) U/L Total Protein (6.4-8.2) gm/dl Albumin (3.4-5.0) gm/dl Globulin (2.5-4.0) gm/dl Albumin/Globulin Ratio (0.9-2) Urine Color Urine Appearance (Clear) Urine pH (4.5-7.5) Ur Specific [place] (1.000-1.030) Urine Protein (Negative) Urine Glucose (UA) (Negative) Urine Ketones (Negative) Urine Blood (Negative) Urine Nitrite (Negative) Urine Bilirubin (Negative) Urine Urobilinogen (Negative) Ur Leukocyte Esterase (Negative) Urine Opiates Screen (Neg) Ur Methadone, Qual (Neg) Urine Barbiturates (Neg) Ur Phencyclidine (PCP) (Neg) U Amphetamin/Meth Scrn (Neg) MDMA (Ecstasy) Screen (Neg) U Benzodiazepines Scrn (Neg) Ur Cocaine Metabolite (Neg) U Marijuana (THC) Screen (Neg) RPR COVID-19 PCR NEGATIVE (Negative) Hep Bs Antigen Neg (Neg) Hepatitis C Antibody Prelim Pos A (Neg) HCV RNA Qual (TMA) HIV 1&2 Ab/P24 Ag 4thGn (Neg) Rubella IgG Antibody Immune (Immune) Blood Type A Positive Antibody Screen NEGATIVE 10/11/19 10/11/19 Range/Units 14:26 14:26 WBC (4.8-10.8) K/uL RBC (4.2-5.4) M/uL Hgb (12.0-16.0) g/dL Hct (37-47) % MCV (80-100) fL MCH (25-34) pg MCHC (32-36) g/dL RDW Std Deviation (36.4-46.3) fL RDW Coeff of Pedro (11.5-14.5) % Plt Count (130-400) K/uL MPV (7.4-10.4) fL Immature Gran % (Auto) % Neut % (Auto) % Lymph % (Auto) % [place] % (Auto) % Eos % (Auto) % Baso % (Auto) % Neut # (Auto) (1.4-6.5) K/uL Lymph # (Auto) (1.2-3.4) K/uL [place] # (Auto) (0.11-0.59) K/uL Eos # (Auto) (0-0.5) K/uL Baso # (Auto) (0-0.2) K/uL Immature Gran # (Auto) (0.00-0.02) K/uL PT 9.6 (9.0-12.0) Seconds INR 0.9 (0.9-1.1) APTT 25.9 (21.0-31.0) Seconds PTT Ratio 0.9 Cord ABG pH (7.1-7.38) Cord ABG pCO2 (39.1-73.5) mmHg Cord ABG pO2 (4.1-31.7) mmHg Cord ABG HCO3 (19.7-28.5) mmol/L Cord ABG Base Excess (-9-1.8) mEq/L Cord ABG O2 Sat (<60) % Cord VBG pH (7.20-7.44) Cord VBG pCO2 (30.4-57.2) mmHg Cord VBG pO2 (14.1-43.3) mmHg Cord VBG HCO3 (18.4-26.8) mmol/L Cord VBG Base Excess (-7.7-1.9) mEq/L Cord VBG O2 Sat (<68) % Barometric Pressure mm/Hg Blood Gas Comments Sodium 136 (136-145) mmol/L Potassium 3.8 (3.5-5.1) mmol/L Chloride 105 (98-107) mmol/L Carbon Dioxide 25 (21-32) mmol/L Anion Gap 7.0 (3-11) BUN 4 L (7-18) mg/dl Creatinine 0.60 (0.6-1.2) mg/dl Est Cr Clr Drug Dosing 117.8 ml/min Est GFR ( Amer) 136.9 Est GFR (Non-Af Amer) 118.1 BUN/Creatinine Ratio 6.5 L (10-20) Glucose 78 (70-99) mg/dl Estimat Average Glucose Hemoglobin A1c Calcium 8.5 (8.5-10.1) mg/dl Total Bilirubin 0.3 (0.2-1) mg/dl Direct Bilirubin < 0.1 (0-0.2) mg/dl AST 8 L (15-37) U/L ALT 10 L (12-78) U/L Alkaline Phosphatase 270 H (45-117) U/L Total Protein 7.2 (6.4-8.2) gm/dl Albumin 2.4 L (3.4-5.0) gm/dl Globulin 4.8 H (2.5-4.0) gm/dl Albumin/Globulin Ratio 0.5 L (0.9-2) Urine Color Urine Appearance (Clear) Urine pH (4.5-7.5) Ur Specific [place] (1.000-1.030) Urine Protein (Negative) Urine Glucose (UA) (Negative) Urine Ketones (Negative) Urine Blood (Negative) Urine Nitrite (Negative) Urine Bilirubin (Negative) Urine Urobilinogen (Negative) Ur Leukocyte Esterase (Negative) Urine Opiates Screen (Neg) Ur Methadone, Qual (Neg) Urine Barbiturates (Neg) Ur Phencyclidine (PCP) (Neg) U Amphetamin/Meth Scrn (Neg) MDMA (Ecstasy) Screen (Neg) U Benzodiazepines Scrn (Neg) Ur Cocaine Metabolite (Neg) U Marijuana (THC) Screen (Neg) RPR COVID-19 PCR (Negative) Hep Bs Antigen (Neg) Hepatitis C Antibody (Neg) HCV RNA Qual (TMA) HIV 1&2 Ab/P24 Ag 4thGn (Neg) Rubella IgG Antibody (Immune) Blood Type Antibody Screen Medications Administered Current Inpatient Medications Benzocaine (Dermoplast Pain Relieving [place]) 1 appln EXT UD PRN PRN Reason: use on skin as needed Stop: 11/10/19 19:22 Buprenorphine HCl (Subutex) 2 mg SL DAILY [facility] Stop: 11/11/19 08:59 Cocaine HCl (Supercream 0.870%) 1 gm EXT UD PRN PRN Reason: hemmorrhoidal inflammation Stop: 10/25/19 19:22 Diphenhydramine HCl (Benadryl Capsule) 25 mg PO QID PRN PRN Reason: Itching Stop: 11/10/19 19:22 Diphenhydramine HCl (Benadryl) 25 mg IV QID PRN PRN Reason: Itching Stop: 11/10/19 19:22 Docusate Sodium (Colace) 100 mg PO DAILY@, [facility] Stop: 11/10/19 20:59 Ferrous Sulfate (Feosol) 325 mg PO DAILY@08 [facility] Stop: 11/11/19 07:59 Hydrocortisone (Anusol Hc) 25 mg MA BID PRN PRN Reason: Hemorrhoids Stop: 11/10/19 19:22 Lactated Ringer's (Lr) 1,000 mls @ 125 mls/hr IV .Q8H [facility] Stop: 11/10/19 19:29 Promethazine HCl 25 mg/ Sodium (Chloride) 51 mls @ 204 mls/hr IV Q4H PRN PRN Reason: Nausea And Vomiting Stop: 11/10/19 19:22 Oxytocin 30 units/ Lactated (Ringer's) 1,003 mls @ 125 mls/hr IV .Q8H2M [facility] Stop: 10/12/19 03:31 Last Admin: 10/11/19 20:15 Dose: 125 mls/hr Documented by: Ibuprofen (Motrin) 600 mg PO Q4H PRN PRN Reason: Pain Stop: 11/10/19 19:22 Ketorolac Tromethamine (Toradol) 30 mg IV Q6H PRN PRN Reason: Pain Stop: 10/16/19 19:22 Magnesium Hydroxide (Milk Of Magnesia) 30 ml PO HS PRN PRN Reason: Constipation Stop: 11/10/19 19:22 Meperidine HCl (Demerol) 50 - 75 mg IV Q4H PRN PRN Reason: Pain Stop: 10/25/19 19:22 Ondansetron HCl (Zofran) 4 mg IV Q4H PRN PRN Reason: Nausea And Vomiting Stop: 11/10/19 19:22 Oxycodone/Acetaminophen (Percocet 5mg/325mg) 1 - 2 tab PO Q4H PRN PRN Reason: Pain Stop: 10/25/19 19:22 Prenat Multivit/[place]/Iron/Folic Ac ( Vitamin) 1 tab PO DAILY@08 [facility] Stop: 11/11/19 07:59 Sennosides (Senokot) 17.2 mg PO HS PRN PRN Reason: Constipation Stop: 11/10/19 19:22 Simethicone (Mylicon) 80 mg PO DAILY@08,13,17,21 [facility] Stop: 11/10/19 20:59 Resident Activity Tracking Resident Involvement: Resident Care Provided Care Provided: Adult Hospital Medicine
[2019-10-11] MEDS: NICOTINE 21 MG/24 HR TDSY TD SCH (22:26)
--- NOTE | 2019-10-12 03:54 | Billing Data ---
Date of Service October 11, 2019 Coding Level of Care Code 97649 Inpt Consult Level 3
[2019-10-12] MEDS: KETOROLAC 30 MG/ML VIAL IV PRN ×4 (04:09→15:05)
[2019-10-12] MEDS: LACTATED RINGER'S 1,000 ML IV SCH ×2 (04:14→11:58)
[2019-10-12 06:01] LABS: Basophils # (auto) 0.01 K/uL (0-0.2); Basophils % (auto) 0.1 %; Eosinophils # (auto) 0.05 K/uL (0-0.5); Eosinophils % (auto) 0.3 %; Hematocrit (blood only) 22.2 % (37-47); Hemoglobin 7.3 g/dL (12.0-16.0); Immature Granulocytes # (auto) 0.04 K/uL (0.00-0.02); Immature Granulocytes % (auto) 0.2 %; Lymphocytes # (auto) 3.32 K/uL (1.2-3.4); Lymphocytes % (auto) 20.4 %; Mean Corpuscular Hemoglobin 26.4 pg (25-34); Mean Corpuscular Hgb Conc 32.9 g/dL (32-36); Mean Corpuscular Volume 80.4 fL (80-100); Mean Platelet Volume 10.7 fL (7.4-10.4); Monocytes # (auto) 1.05 K/uL (0.11-0.59); Monocytes % (auto) 6.4 %; Neutrophils # (auto) 11.84 K/uL (1.4-6.5); Neutrophils % (auto) 72.6 %; Platelet Count 232 K/uL (130-400); RDW Coefficient of Variation 13.5 % (11.5-14.5); RDW Standard Deviation 39.7 fL (36.4-46.3); Red Blood Count 2.76 M/uL (4.2-5.4); White Blood Count 16.31 K/uL (4.8-10.8)
[2019-10-12 06:24] LABS: Estimated Average Glucose 120 mg/dl; Hemoglobin A1C 5.8 % (4.5-5.6)
[2019-10-12 06:31] LABS: RBC Morphology Unremarkable
--- NOTE | 2019-10-12 08:39 | Obstetrical Progress Note ---
Date of Service October 12, 2019 Assessment & Plan (1) Hepatitis C antibody test positive: New diagnosis, confirm pending. Appreciate medicine team input, plan outpatient f/u of this issue with PCP. Peds aware. (2) Previous delivery affecting , antepartum: Repeat CS POD#1 recovering normally. Hart out and regular diet today. (3) Drug dependence affecting , antepartum: Subutex 2mg pO daily on short term basis while here; to re-establish with [facility] and appreciate medicine team / case management assistance with this. (4) No care in current : Case management consult placed. Two prior children currently with grandparents. Subjective Ambulation: limited ambulation Voiding: hart catheter in place Passing Gas:: Yes Diet Tolerance:: clear liquids Lochia:: Small Feeding Type:: bottle feeding Current Pain Level(1-10): 0 Physical Exam Constitutional WD/WN, vitals as above Eyes PERRL, conjunctivae normal, anicteric sclerae ENMT external ear and nose normal, oropharynx normal Neck trachea midline, no thyromegaly Respiratory normal respiratory effort and able to speak in complete sentences; no respiratory distress, no labored breathing and does not use accessory muscles Cardiovascular Rate/Rhythm: regular rate and regular rhythm Extremities: no calf tenderness and no pedal edema Chest (Breasts) Breast: normal inspection of breasts Gastrointestinal (Abdomen) Inspection/Auscultation: abdomen normal to inspection; abdomen not distended Incision c/d/i Musculoskeletal no cyanosis or clubbing, extremities motor strength 5/5 Skin no rashes, warm and dry Neurologic patellar DTR's 2+ bilat, sensation intact Psychiatric A+Ox3, euthymic affect Genitourinary Speculum/Bimanual Exam: uterus nontender OB Exam Abdomen: + fundal height (at umbilicus) Fundus: + firm Results & Data ([facility]) Vital Signs (Past 12 Hours) Vital Signs Temp Pulse Pulse Resp BP BP Pulse Ox 10/12/19 06:40 16 98 10/12/19 06:00 126/67 10/12/19 05:40 17 98 10/12/19 04:40 17 96 10/12/19 04:05 98.1 F 94 H 16 148/84 H 97 10/12/19 03:40 15 97 10/12/19 02:40 16 97 10/12/19 01:40 16 98 10/12/19 00:40 15 97 10/11/19 23:40 98.2 F 97 H 17 134/94 98 10/11/19 23:04 82 97 10/11/19 22:59 83 98 10/11/19 22:55 80 145/88 H 10/11/19 22:54 81 98 10/11/19 22:49 94 H 98 10/11/19 22:44 79 98 10/11/19 22:39 85 98 10/11/19 22:34 87 97 10/11/19 22:30 18 98 10/11/19 22:29 82 98 10/11/19 22:25 81 139/85 10/11/19 22:24 88 97 10/11/19 22:19 79 97 10/11/19 22:14 85 97 10/11/19 22:09 87 97 10/11/19 22:04 66 98 10/11/19 21:59 72 98 10/11/19 21:55 90 184/96 H 10/11/19 21:54 91 H 99 10/11/19 21:49 76 98 10/11/19 21:44 72 98 10/11/19 21:39 79 98 10/11/19 21:34 79 169/81 H 98 10/11/19 21:30 18 10/11/19 21:29 77 97 10/11/19 21:26 80 195/96 H 10/11/19 21:24 86 97 10/11/19 21:19 72 97 10/11/19 21:14 66 97 10/11/19 21:09 75 97 10/11/19 21:04 77 100 10/11/19 20:59 87 99 10/11/19 20:56 83 132/113 H 10/11/19 20:54 83 99 10/11/19 20:49 77 99 10/11/19 20:44 72 98 10/11/19 20:39 68 99
[2019-10-12] MEDS: SIMETHICONE 80 MG CHEW PO SCH ×4 (08:53→20:48)
[2019-10-12] MEDS: PRENATAL VITAMIN 1 TAB PO SCH (08:53)
[2019-10-12] MEDS: FERROUS SULFATE 325 MG TAB PO SCH (08:53)
[2019-10-12] MEDS: DOCUSATE SODIUM 100 MG CAP PO SCH ×2 (08:53→20:48)
[2019-10-12] MEDS: NICOTINE 21 MG/24 HR TDSY TD SCH ×2 (08:53→16:37)
[2019-10-12] MEDS ORDERED: NON-FORMULARY MEDICATION (Prenat.Vits,Cal,Min-Iron-Folic 1 TAB) PO SCH (09:00)
[2019-10-12] MEDS: buprenorphine HCL 2 MG SUBL SL SCH (09:42)
--- NOTE | 2019-10-12 13:41 | Hospitalist Progress Note ---
Date of Service October 12, 2019 Assessment & Plan (1) Drug dependence affecting , antepartum: Alexandria Kapoor is a 34y/o F s/p RLT at 40 weeks 5 days, 2 prior C-sections, this complicated by no care, use of IV methamphetamines, use of Subutex bought off the street. Drug-dependence during : - Patient states he was using 2 mg Subutex daily, she has been using this daily more or less since she was in her early to mid 20s - Previously was receiving 2 mg p.o. Subutex from [facility] in [place] - Discussed administration with pharmacy, as team does not have licensed provider for Subutex - Will continue 2 mg Subutex for 72 hours during hospitalization (started October 11, 2019); after this time patient will need to have following doses from established licensed provider - As she was not formally kicked out of [facility], consideration should be to restart her care through them first as this might expedite the process - Case management consulted for establishment of child services following no care during and to help with transition back to [facility] Hep C antibody test positive: - Following last , patient had negative hep C testing at that time. - Does have known exposure with previous partner having hep C, last saw him 2 years ago - Current partner (FOB) does not have confirmed hep C - Hep C RNA qualitative prelim positive this admission -Appreciate CM assistance for outpatient ID follow-up for Harvoni treatment. Patient is not breast-feeding so likely can begin treatment shortly after discharge - We will need established care with PCP s/p : - POD #1, routine care per OB group Tobacco Abuse -nicotine patch FEN/GI: LR at 125. Regular OB diet DVT prophylaxis: SCDs, ambulation Full code Dispo: Remains on OB. Appreciate CM assistance Admission and Anticipated Discharge Date Admission Date: October 11, 2019 Supervising Physician Co-Signing Physician Notes I personally examined the patient and verified all becerra points of history and exam, discussed case, and agree with decision making with Dr Bangura. feeling good. baby doing well. discussed subutex and hep C vitals noted nad heent nc at mmm breathing unlabored no accessory muscles good effort skin no rashes no pallor or icterus drug dependence - subutex. was given #'s for clinics to have f/u hep C - prelim positive, anticipate true positive. discussed modern-era treatment success - refer to ID as outpt (asked navigator to assist with this) otherwise as above Subjective 84-year-old female found in bed this morning in no acute distress. No acute overnight events. Patient tolerating p.o. intake. Hoang catheter in place, passing gas. Mother is decided to bottle feed . Patient has not tried to o much in the way of ambulation. Patient open to going back to [facility] in [place] upon discharge. Patient with no other acute concerns or complaints. Review of Systems Review of Systems: All systems reviewed & are unremarkable except as noted in HPI & below Physical Exam Constitutional: WD/WN, vitals as above Eyes: PERRL, conjunctivae normal, anicteric sclerae ENMT: external ear and nose normal, oropharynx normal Respiratory: normal respiratory effort, lungs clear to auscultation Cardiovascular: RRR, no murmur, no edema Gastrointestinal (Abdomen): normal bowel sounds, soft, nontender, no hepatosplenomegaly Skin: no rashes, warm and dry Psychiatric: A+Ox3, euthymic affect Results & Data Results & Data ([facility]) Vital Signs (Past 12 Hours) Vital Signs Temp Pulse Resp BP Pulse Ox 10/12/19 13:24 16 96 10/12/19 12:15 36.8 C 87 16 122/70 97 10/12/19 12:05 16 98 10/12/19 10:25 16 98 10/12/19 09:15 16 98 10/12/19 08:20 16 97 10/12/19 07:49 36.8 C 96 H 16 124/72 97 10/12/19 07:35 16 97 10/12/19 06:40 16 98 10/12/19 06:00 126/67 10/12/19 05:40 17 98 10/12/19 04:40 17 96 10/12/19 04:05 36.7 C 94 H 16 148/84 H 97 10/12/19 03:40 15 97 10/12/19 02:40 16 97 10/12/19 01:40 16 98 Laboratory Results Laboratory Results - last 24 hr 10/11/19 10/11/19 10/11/19 14:26 14:26 16:25 WBC RBC Hgb Hct MCV MCH MCHC RDW Std Deviation RDW Coeff of Pedro Plt Count MPV Immature Gran % (Auto) Neut % (Auto) Lymph % (Auto) [place] % (Auto) Eos % (Auto) Baso % (Auto) Neut # (Auto) Lymph # (Auto) [place] # (Auto) Eos # (Auto) Baso # (Auto) Immature Gran # (Auto) RBC Morphology PT 9.6 INR 0.9 APTT 25.9 PTT Ratio 0.9 Cord ABG pH Cord ABG pCO2 Cord ABG pO2 Cord ABG HCO3 Cord ABG Base Excess Cord ABG O2 Sat Cord VBG pH Cord VBG pCO2 Cord VBG pO2 Cord VBG HCO3 Cord VBG Base Excess Cord VBG O2 Sat Barometric Pressure Blood Gas Comments Sodium 136 Potassium 3.8 Chloride 105 Carbon Dioxide 25 Anion Gap 7.0 BUN 4 L Creatinine 0.60 Est Cr Clr Drug Dosing 117.8 Est GFR ( Amer) 136.9 Est GFR (Non-Af Amer) 118.1 BUN/Creatinine Ratio 6.5 L Glucose 78 Estimat Average Glucose Hemoglobin A1c Calcium 8.5 Total Bilirubin 0.3 Direct Bilirubin < 0.1 AST 8 L ALT 10 L Alkaline Phosphatase 270 H Total Protein 7.2 Albumin 2.4 L Globulin 4.8 H Albumin/Globulin Ratio 0.5 L Urine Color Urine Appearance Urine pH Ur Specific [place] Urine Protein Urine Glucose (UA) Urine Ketones Urine Blood Urine Nitrite Urine Bilirubin Urine Urobilinogen Ur Leukocyte Esterase Urine Opiates Screen Ur Methadone, Qual Urine Barbiturates Ur Phencyclidine (PCP) U Amphetamin/Meth Scrn MDMA (Ecstasy) Screen U Benzodiazepines Scrn Ur Cocaine Metabolite U Marijuana (THC) Screen RPR COVID-19 PCR Hep Bs Antigen Hepatitis C Antibody HCV RNA Qual (TMA) HIV 1&2 Ab/P24 Ag 4thGn Rubella IgG Antibody Blood Type A Positive Antibody Screen NEGATIVE 10/11/19 10/11/19 10/11/19 16:25 16:26 16:26 WBC RBC Hgb Hct MCV MCH MCHC RDW Std Deviation RDW Coeff of Pedro Plt Count MPV Immature Gran % (Auto) Neut % (Auto) Lymph % (Auto) [place] % (Auto) Eos % (Auto) Baso % (Auto) Neut # (Auto) Lymph # (Auto) [place] # (Auto) Eos # (Auto) Baso # (Auto) Immature Gran # (Auto) RBC Morphology PT INR APTT PTT Ratio Cord ABG pH Cord ABG pCO2 Cord ABG pO2 Cord ABG HCO3 Cord ABG Base Excess Cord ABG O2 Sat Cord VBG pH Cord VBG pCO2 Cord VBG pO2 Cord VBG HCO3 Cord VBG Base Excess Cord VBG O2 Sat Barometric Pressure Blood Gas Comments Sodium Potassium Chloride Carbon Dioxide Anion Gap BUN Creatinine Est Cr Clr Drug Dosing Est GFR ( Amer) Est GFR (Non-Af Amer) BUN/Creatinine Ratio Glucose Estimat Average Glucose Hemoglobin A1c Calcium Total Bilirubin Direct Bilirubin AST ALT Alkaline Phosphatase Total Protein Albumin Globulin Albumin/Globulin Ratio Urine Color Urine Appearance Urine pH Ur Specific [place] Urine Protein Urine Glucose (UA) Urine Ketones Urine Blood Urine Nitrite Urine Bilirubin Urine Urobilinogen Ur Leukocyte Esterase Urine Opiates Screen Ur Methadone, Qual Urine Barbiturates Ur Phencyclidine (PCP) U Amphetamin/Meth Scrn MDMA (Ecstasy) Screen U Benzodiazepines Scrn Ur Cocaine Metabolite U Marijuana (THC) Screen RPR Nonreactive COVID-19 PCR NEGATIVE Hep Bs Antigen Neg Hepatitis C Antibody Prelim Pos A HCV RNA Qual (TMA) HIV 1&2 Ab/P24 Ag 4thGn Rubella IgG Antibody Immune Blood Type Antibody Screen 10/11/19 10/11/19 10/11/19 16:26 16:26 16:26 WBC 15.58 H RBC 3.74 L Hgb 9.8 L Hct 29.9 L MCV 79.9 L MCH 26.2 MCHC 32.8 RDW Std Deviation 38.8 RDW Coeff of Pedro 13.4 Plt Count 280 MPV 10.8 H Immature Gran % (Auto) 0.5 Neut % (Auto) 67.2 Lymph % (Auto) 25.9 [place] % (Auto) 5.5 Eos % (Auto) 0.8 Baso % (Auto) 0.1 Neut # (Auto) 10.47 H Lymph # (Auto) 4.04 H [place] # (Auto) 0.85 H Eos # (Auto) 0.12 Baso # (Auto) 0.02 Immature Gran # (Auto) 0.08 H RBC Morphology PT INR APTT PTT Ratio Cord ABG pH Cord ABG pCO2 Cord ABG pO2 Cord ABG HCO3 Cord ABG Base Excess Cord ABG O2 Sat Cord VBG pH Cord VBG pCO2 Cord VBG pO2 Cord VBG HCO3 Cord VBG Base Excess Cord VBG O2 Sat Barometric Pressure Blood Gas Comments Sodium Potassium Chloride Carbon Dioxide Anion Gap BUN Creatinine Est Cr Clr Drug Dosing Est GFR ( Amer) Est GFR (Non-Af Amer) BUN/Creatinine Ratio Glucose Estimat Average Glucose Hemoglobin A1c Calcium Total Bilirubin Direct Bilirubin AST ALT Alkaline Phosphatase Total Protein Albumin Globulin Albumin/Globulin Ratio Urine Color Urine Appearance Urine pH Ur Specific [place] Urine Protein Urine Glucose (UA) Urine Ketones Urine Blood Urine Nitrite Urine Bilirubin Urine Urobilinogen Ur Leukocyte Esterase Urine Opiates Screen Ur Methadone, Qual Urine Barbiturates Ur Phencyclidine (PCP) U Amphetamin/Meth Scrn MDMA (Ecstasy) Screen U Benzodiazepines Scrn Ur Cocaine Metabolite U Marijuana (THC) Screen RPR COVID-19 PCR Hep Bs Antigen Hepatitis C Antibody HCV RNA Qual (TMA) Pending HIV 1&2 Ab/P24 Ag 4thGn Neg Rubella IgG Antibody Blood Type Antibody Screen 10/11/19 10/11/19 10/11/19 16:28 17:25 17:25 WBC RBC Hgb Hct MCV MCH MCHC RDW Std Deviation RDW Coeff of Pedro Plt Count MPV Immature Gran % (Auto) Neut % (Auto) Lymph % (Auto) [place] % (Auto) Eos % (Auto) Baso % (Auto) Neut # (Auto) Lymph # (Auto) [place] # (Auto) Eos # (Auto) Baso # (Auto) Immature Gran # (Auto) RBC Morphology PT INR APTT PTT Ratio Cord ABG pH Cord ABG pCO2 Cord ABG pO2 Cord ABG HCO3 Cord ABG Base Excess Cord ABG O2 Sat Cord VBG pH Cord VBG pCO2 Cord VBG pO2 Cord VBG HCO3 Cord VBG Base Excess Cord VBG O2 Sat Barometric Pressure Blood Gas Comments Sodium Potassium Chloride Carbon Dioxide Anion Gap BUN Creatinine Est Cr Clr Drug Dosing Est GFR ( Amer) Est GFR (Non-Af Amer) BUN/Creatinine Ratio Glucose Estimat Average Glucose 120 Hemoglobin A1c 5.8 H Calcium Total Bilirubin Direct Bilirubin AST ALT Alkaline Phosphatase Total Protein Albumin Globulin Albumin/Globulin Ratio Urine Color Yellow Urine Appearance Clear Urine pH 7.5 Ur Specific [place] 1.005 Urine Protein Negative Urine Glucose (UA) Negative Urine Ketones Negative Urine Blood Negative Urine Nitrite Negative Urine Bilirubin Negative Urine Urobilinogen Negative Ur Leukocyte Esterase Negative Urine Opiates Screen Neg Ur Methadone, Qual Neg Urine Barbiturates Neg Ur Phencyclidine (PCP) Neg U Amphetamin/Meth Scrn Neg MDMA (Ecstasy) Screen Neg U Benzodiazepines Scrn Neg Ur Cocaine Metabolite Neg U Marijuana (THC) Screen Neg RPR COVID-19 PCR Hep Bs Antigen Hepatitis C Antibody HCV RNA Qual (TMA) HIV 1&2 Ab/P24 Ag 4thGn Rubella IgG Antibody Blood Type Antibody Screen 10/11/19 10/11/19 10/12/19 18:37 18:37 05:34 WBC 16.31 H RBC 2.76 L Hgb 7.3 L Hct 22.2 L MCV 80.4 MCH 26.4 MCHC 32.9 RDW Std Deviation 39.7 RDW Coeff of Pedro 13.5 Plt Count 232 MPV 10.7 H Immature Gran % (Auto) 0.2 Neut % (Auto) 72.6 Lymph % (Auto) 20.4 [place] % (Auto) 6.4 Eos % (Auto) 0.3 Baso % (Auto) 0.1 Neut # (Auto) 11.84 H Lymph # (Auto) 3.32 [place] # (Auto) 1.05 H Eos # (Auto) 0.05 Baso # (Auto) 0.01 Immature Gran # (Auto) 0.04 H RBC Morphology Unremarkable PT INR APTT PTT Ratio Cord ABG pH 7.35 Cord ABG pCO2 52 Cord ABG pO2 20 Cord ABG HCO3 28 Cord ABG Base Excess 1.4 Cord ABG O2 Sat < 60.0 Cord VBG pH 7.39 Cord VBG pCO2 41 Cord VBG pO2 27 Cord VBG HCO3 25 Cord VBG Base Excess -0.4 Cord VBG O2 Sat 62.0 Barometric Pressure 730.2 730.0 Blood Gas Comments TRINIDAD TRINIDAD Sodium Potassium Chloride Carbon Dioxide Anion Gap BUN Creatinine Est Cr Clr Drug Dosing Est GFR ( Amer) Est GFR (Non-Af Amer) BUN/Creatinine Ratio Glucose Estimat Average Glucose Hemoglobin A1c Calcium Total Bilirubin Direct Bilirubin AST ALT Alkaline Phosphatase Total Protein Albumin Globulin Albumin/Globulin Ratio Urine Color Urine Appearance Urine pH Ur Specific [place] Urine Protein Urine Glucose (UA) Urine Ketones Urine Blood Urine Nitrite Urine Bilirubin Urine Urobilinogen Ur Leukocyte Esterase Urine Opiates Screen Ur Methadone, Qual Urine Barbiturates Ur Phencyclidine (PCP) U Amphetamin/Meth Scrn MDMA (Ecstasy) Screen U Benzodiazepines Scrn Ur Cocaine Metabolite U Marijuana (THC) Screen RPR COVID-19 PCR Hep Bs Antigen Hepatitis C Antibody HCV RNA Qual (TMA) HIV 1&2 Ab/P24 Ag 4thGn Rubella IgG Antibody Blood Type Antibody Screen Medications Administered Current Inpatient Medications Benzocaine (Dermoplast Pain Relieving [place]) 1 appln EXT UD PRN PRN Reason: use on skin as needed Stop: 11/10/19 19:22 Buprenorphine HCl (Subutex) 2 mg SL DAILY [facility]; Protocol Stop: 10/14/19 09:01 Last Admin: 10/12/19 09:42 Dose: 2 mg Documented by: Cocaine HCl (Supercream 0.870%) 1 gm EXT UD PRN PRN Reason: hemmorrhoidal inflammation Stop: 10/25/19 19:22 Diphenhydramine HCl (Benadryl Capsule) 25 mg PO QID PRN PRN Reason: Itching Stop: 11/11/19 15:36 Diphenhydramine HCl (Benadryl) 25 mg IV QID PRN PRN Reason: Itching Stop: 11/11/19 15:36 Diphenhydramine HCl (Benadryl) 25 mg IV Q6H PRN PRN Reason: pruritis Stop: 10/12/19 15:37 Docusate Sodium (Colace) 100 mg PO DAILY@, [facility] Stop: 11/10/19 20:59 Last Admin: 10/12/19 08:53 Dose: 100 mg Documented by: Ephedrine Sulfate (Ephedrine Sulfate) 10 mg IV Q5M PRN PRN Reason: Hypotension Stop: 10/12/19 15:37 Ferrous Sulfate (Feosol) 325 mg PO DAILY@08 [facility] Stop: 11/11/19 07:59 Last Admin: 10/12/19 08:53 Dose: 325 mg Documented by: Hydrocortisone (Anusol Hc) 25 mg OR BID PRN PRN Reason: Hemorrhoids Stop: 11/10/19 19:22 Hydromorphone HCl (Dilaudid) 0.5 mg IV Q4H PRN PRN Reason: Breakthrough Surgical Pain Stop: 10/12/19 15:37 Lactated Ringer's (Lr) 1,000 mls @ 125 mls/hr IV .Q8H [facility] Stop: 11/10/19 19:29 Last Admin: 10/12/19 11:58 Dose: 125 mls/hr Documented by: Promethazine HCl 25 mg/ Sodium (Chloride) 51 mls @ 204 mls/hr IV Q4H PRN PRN Reason: Nausea And Vomiting Stop: 11/11/19 15:36 Sodium Chloride (Nss 1000ml) 1,000 mls @ 15 mls/hr IV .Q24H [facility] Stop: 10/12/19 15:37 Promethazine HCl 6.25 mg/ (Sodium Chloride) 50.25 mls @ 204 mls/hr IV Q6H PRN PRN Reason: Nausea And Vomiting Stop: 10/12/19 15:37 Naloxone HCl 1 mg/ Sodium (Chloride) 1,002.5 mls @ 50 mls/hr IV .Q20H3M PRN PRN Reason: itching or nausea Stop: 10/12/19 15:37 Lactated Ringer's (Lr) 500 mls @ 999 mls/hr IV .Q31M PRN PRN Reason: Hypotension Stop: 10/12/19 15:37 Naloxone HCl 0.08 mg/ Syringe 2 mls @ 1 mls/min IV Q30M PRN; Protocol PRN Reason: Urinary Retention Stop: 10/12/19 15:37 Ibuprofen (Motrin) 600 mg PO Q4H PRN PRN Reason: Pain Stop: 11/10/19 19:22 Ketorolac Tromethamine (Toradol) 30 mg IV Q6H PRN PRN Reason: Pain Stop: 10/17/19 15:37 Last Admin: 10/12/19 08:54 Dose: 30 mg Documented by: Ketorolac Tromethamine (Toradol) 30 mg IV Q6H PRN PRN Reason: Breakthrough Surgical Pain Stop: 10/12/19 15:37 Last Admin: 10/11/19 21:52 Dose: 30 mg Documented by: Magnesium Hydroxide (Milk Of Magnesia) 30 ml PO HS PRN PRN Reason: Constipation Stop: 11/10/19 19:22 Meperidine HCl (Demerol) 50 - 75 mg IV Q4H PRN PRN Reason: Pain Stop: 10/26/19 15:36 Meperidine HCl (Demerol) 25 mg IV Q15M PRN PRN Reason: Breakthrough Surgical Pain Stop: 10/12/19 15:37 Miscellaneous (No Narcotics Or Sedatives) 1 ea N/A UD [facility] Stop: 10/12/19 15:37 Miscellaneous (Remove Nicoderm Patch) 1 ea N/A DAILY@0859 [facility] Stop: 11/11/19 08:58 Last Admin: 10/12/19 08:53 Dose: 1 ea Documented by: Miscellaneous Information (Dc Intraspinal Morphine) 1 ea N/A TODAY@1537 [facility] Stop: 10/12/19 15:38 Morphine Sulfate (Morphine Sulfate) 4 mg IV Q2H PRN PRN Reason: Breakthrough Surgical Pain Stop: 10/12/19 15:37 Naloxone HCl (Narcan) 0.1 mg IV UD PRN PRN Reason: Respiratory Depression Stop: 10/12/19 15:37 Nicotine (Nicoderm Cq) 21 mg TD QAM [facility] Stop: 11/10/19 22:59 Last Admin: 10/12/19 08:53 Dose: 21 mg Documented by: Ondansetron HCl (Zofran) 4 mg IV Q4H PRN PRN Reason: Nausea And Vomiting Stop: 11/10/19 19:22 Ondansetron HCl (Zofran) 4 mg IV Q6H PRN PRN Reason: Nausea And Vomiting Stop: 10/12/19 15:37 Oxycodone/Acetaminophen (Percocet 5mg/325mg) 1 - 2 tab PO Q4H PRN PRN Reason: Pain Stop: 10/26/19 15:36 Prenat Multivit/[place]/Iron/Folic Ac ( Vitamin) 1 tab PO DAILY@08 [facility] Stop: 11/11/19 07:59 Last Admin: 10/12/19 08:53 Dose: 1 tab Documented by: Sennosides (Senokot) 17.2 mg PO HS PRN PRN Reason: Constipation Stop: 11/10/19 19:22 Simethicone (Mylicon) 80 mg PO DAILY@08,13,17,21 [facility] Stop: 11/10/19 20:59 Last Admin: 10/12/19 08:53 Dose: 80 mg Documented by: Resident Activity Tracking Resident Involvement: Resident Care Provided Care Provided: Adult [facility] Medicine
[2019-10-12] MEDS ORDERED: MEPERIDINE HCL 50 MG/ML CARP IV PRN (15:37)
[2019-10-12] MEDS ORDERED: PROMETHAZINE HCL 25 MG in SODIUM CHLORIDE 0.9% 50 ML IV PRN (15:37)
[2019-10-12] MEDS ORDERED: DiphenhydrAMINE HCL 50 MG/ML VIAL IV PRN (15:37)
[2019-10-12] MEDS ORDERED: DC INTRASPINAL MORPHINE SCH (15:37)
[2019-10-12] MEDS ORDERED: OXYCODONE/ACETAMINOPHEN 5mg/325mg TAB PO PRN (15:37)
[2019-10-12] MEDS: IBUPROFEN 600 MG TAB PO PRN ×2 (19:27→23:41)
--- NOTE | 2019-10-12 19:34 | Billing Data ---
Date of Service October 12, 2019 Coding Level of Care Code 53022 Subseq Hosp Care Lvl 2
[2019-10-13] MEDS: IBUPROFEN 600 MG TAB PO PRN ×4 (03:23→23:41)
[2019-10-13 06:13] LABS: Basophils # (auto) 0.01 K/uL (0-0.2); Basophils % (auto) 0.1 %; Eosinophils # (auto) 0.19 K/uL (0-0.5); Eosinophils % (auto) 1.3 %; Hematocrit (blood only) 23.1 % (37-47); Hemoglobin 7.4 g/dL (12.0-16.0); Immature Granulocytes # (auto) 0.07 K/uL (0.00-0.02); Immature Granulocytes % (auto) 0.5 %; Lymphocytes # (auto) 3.82 K/uL (1.2-3.4); Lymphocytes % (auto) 26.4 %; Mean Corpuscular Volume 81.1 fL (80-100); Mean Platelet Volume 9.9 fL (7.4-10.4); Monocytes # (auto) 1.27 K/uL (0.11-0.59); Monocytes % (auto) 8.8 %; Neutrophils # (auto) 9.11 K/uL (1.4-6.5); Neutrophils % (auto) 62.9 %; Platelet Count 301 K/uL (130-400); RDW Coefficient of Variation 13.5 % (11.5-14.5); RDW Standard Deviation 40.2 fL (36.4-46.3); Red Blood Count 2.85 M/uL (4.2-5.4); White Blood Count 14.47 K/uL (4.8-10.8)
[2019-10-13 06:49] LABS: BUN Creatinine Ratio 13.3 (10-20); Calcium 8.8 mg/dl (8.5-10.1); Creatinine Clr Calc Pharmacy 133.4 ml/min; Est GFR (African American) 142.6; Potassium 3.9 mmol/L (3.5-5.1)
--- NOTE | 2019-10-13 07:02 | Obstetrical Progress Note ---
Date of Service October 13, 2019 Assessment & Plan (1) Previous delivery affecting , antepartum: - stable - seen by CYS, plan established - ambulate - anemic, on Fe Subjective Ambulation: ambulating normally Physical Exam Constitutional WD/WN, vitals as above Respiratory normal respiratory effort, lungs clear to auscultation Cardiovascular RRR, no murmur, no edema Gastrointestinal (Abdomen) Incision intact, appropriate post-op tenderness Musculoskeletal (-) deep calf tenderness Results & Data ([facility]) Vital Signs (Past 12 Hours) Vital Signs Temp Pulse Resp BP 10/13/19 00:30 130/91 10/12/19 23:35 97.5 F L 101 H 20 144/90 H 10/12/19 19:30 98.2 F 83 20 138/89
[2019-10-13 07:33] LABS: RBC Morphology Unremarkable
[2019-10-13] MEDS: SIMETHICONE 80 MG CHEW PO SCH ×4 (07:51→21:06)
[2019-10-13] MEDS: DOCUSATE SODIUM 100 MG CAP PO SCH ×2 (07:51→21:06)
[2019-10-13] MEDS: FERROUS SULFATE 325 MG TAB PO SCH (07:51)
[2019-10-13] MEDS: PRENATAL VITAMIN 1 TAB PO SCH (07:51)
[2019-10-13] MEDS: buprenorphine HCL 2 MG SUBL SL SCH (09:22)
[2019-10-13] MEDS: NICOTINE 21 MG/24 HR TDSY TD SCH (09:22)
--- NOTE | 2019-10-13 11:22 | Hospitalist Progress Note ---
Date of Service October 13, 2019 Assessment & Plan (1) Drug dependence affecting , antepartum: Alexandria Kapoor is a 34y/o F s/p RLT at 40 weeks 5 days, 2 prior C-sections, this complicated by no care, use of IV methamphetamines, use of Subutex bought off the street. Drug-dependence during : - Patient states he was using 2 mg Subutex daily, she has been using this daily more or less since she was in her early to mid 20s - Previously was receiving 2 mg p.o. Subutex from [facility] in [place] - Discussed administration with pharmacy, as team does not have licensed provider for Subutex - Will continue 2 mg Subutex for 72 hours during hospitalization (started October 11, 2019); after this time patient will need to have following doses from established licensed provider - Case management provided patient with resources for outpatient follow-up, instructed to call to establish care before discharge so she does not continue to by Subutex off street Hep C antibody test positive: - Following last , patient had negative hep C testing at that time. - Does have known exposure with previous partner having hep C, last saw him 2 years ago - Current partner (FOB) does not have confirmed hep C - Hep C RNA qualitative prelim positive this admission - Patient is not breast-feeding so likely can begin treatment shortly after discharge - Follow-up with Aldo MOORE on 10/23 - We will need established care with PCP s/p : - POD #2, routine care per OB group Tobacco Abuse -nicotine patch Medicine will sign at this time Code status: Full code Admission and Anticipated Discharge Date Admission Date: October 11, 2019 Supervising Physician Co-Signing Physician Notes I personally examined the patient and verified all becerra points of history and exam, discussed case, and agree with decision making with Dr Barrientos. feeling good. baby doing well. calling to get in w suboxone clinics. set up for hep C treatment. vitals noted nad heent nc at mmm breathing unlabored no accessory muscles good effort skin no rashes no pallor or icterus drug dependence - subutex. was given #'s for clinics to have f/u. she is calling. hep C - prelim positive, anticipate true positive. referred to ID - set up w [facility] otherwise as above Subjective Patient feels well this morning, is continuing to feel well; minimal abdominal pain or discomfort at this point. Working toward having established care with licensed suboxone/Subutex for tomorrow. Review of Systems Review of Systems: All systems reviewed & are unremarkable except as noted in Subjective Physical Exam Constitutional: WD/WN, vitals as above Eyes: PERRL, conjunctivae normal, anicteric sclerae Respiratory: normal respiratory effort, lungs clear to auscultation Cardiovascular: Rate/Rhythm: regular rate and regular rhythm Heart Sounds: no gallop, no murmur and no cardiac rub Vessels: no JVD Extremities: no pedal edema Gastrointestinal (Abdomen): Inspection/Auscultation: normal bowel sounds and + abdominal surgical incision (low-transverse intact with surgical glue); abdomen not distended Percussion/Palpation: + abdomen tender (over uterine fundus) and abdomen soft; no hepatosplenomegaly Skin: no rashes, warm and dry Psychiatric: A+Ox3, euthymic affect Results & Data Results & Data ([facility]) Vital Signs (Past 12 Hours) Vital Signs Temp Pulse Resp BP Pulse Ox 10/13/19 08:05 36.5 C 76 18 177/102 H 100 10/13/19 00:30 130/91 10/12/19 23:35 36.4 C L 101 H 20 144/90 H Laboratory Results 10/13/19 10/13/19 Range/Units 05:40 05:40 WBC 14.47 H (4.8-10.8) K/uL RBC 2.85 L (4.2-5.4) M/uL Hgb 7.4 L (12.0-16.0) g/dL Hct 23.1 L (37-47) % MCV 81.1 (80-100) fL MCH 26.0 (25-34) pg MCHC 32.0 (32-36) g/dL RDW Std Deviation 40.2 (36.4-46.3) fL RDW Coeff of Pedro 13.5 (11.5-14.5) % Plt Count 301 (130-400) K/uL MPV 9.9 (7.4-10.4) fL Immature Gran % (Auto) 0.5 % Neut % (Auto) 62.9 % Lymph % (Auto) 26.4 % Ransom % (Auto) 8.8 % Eos % (Auto) 1.3 % Baso % (Auto) 0.1 % Neut # (Auto) 9.11 H (1.4-6.5) K/uL Lymph # (Auto) 3.82 H (1.2-3.4) K/uL Ransom # (Auto) 1.27 H (0.11-0.59) K/uL Eos # (Auto) 0.19 (0-0.5) K/uL Baso # (Auto) 0.01 (0-0.2) K/uL Immature Gran # (Auto) 0.07 H (0.00-0.02) K/uL RBC Morphology Unremarkable Sodium 139 (136-145) mmol/L Potassium 3.9 (3.5-5.1) mmol/L Chloride 105 (98-107) mmol/L Carbon Dioxide 27 (21-32) mmol/L Anion Gap 7.0 (3-11) BUN 7 (7-18) mg/dl Creatinine 0.53 L (0.6-1.2) mg/dl Est Cr Clr Drug Dosing 133.4 ml/min Est GFR ( Amer) 142.6 Est GFR (Non-Af Amer) 123.0 BUN/Creatinine Ratio 13.3 (10-20) Glucose 80 (70-99) mg/dl Calcium 8.8 (8.5-10.1) mg/dl Medications Administered Current Inpatient Medications Benzocaine (Dermoplast Pain Relieving [place]) 1 appln EXT UD PRN PRN Reason: use on skin as needed Stop: 11/10/19 19:22 Buprenorphine HCl (Subutex) 2 mg SL DAILY [facility]; Protocol Stop: 10/14/19 09:01 Last Admin: 10/13/19 09:22 Dose: 2 mg Documented by: Cocaine HCl (Supercream 0.870%) 1 gm EXT UD PRN PRN Reason: hemmorrhoidal inflammation Stop: 10/25/19 19:22 Diphenhydramine HCl (Benadryl Capsule) 25 mg PO QID PRN PRN Reason: Itching Stop: 11/11/19 15:36 Diphenhydramine HCl (Benadryl) 25 mg IV QID PRN PRN Reason: Itching Stop: 11/11/19 15:36 Docusate Sodium (Colace) 100 mg PO DAILY@, [facility] Stop: 11/10/19 20:59 Last Admin: 10/13/19 07:51 Dose: 100 mg Documented by: Ferrous Sulfate (Feosol) 325 mg PO DAILY@08 [facility] Stop: 11/11/19 07:59 Last Admin: 10/13/19 07:51 Dose: 325 mg Documented by: Hydrocortisone (Anusol Hc) [address] BID PRN PRN Reason: Hemorrhoids Stop: 11/10/19 19:22 Lactated Ringer's (Lr) 1,000 mls @ 125 mls/hr IV .Q8H [facility] Stop: 11/10/19 19:29 Last Admin: 10/12/19 11:58 Dose: 125 mls/hr Documented by: Promethazine HCl 25 mg/ Sodium (Chloride) 51 mls @ 204 mls/hr IV Q4H PRN PRN Reason: Nausea And Vomiting Stop: 11/11/19 15:36 Ibuprofen (Motrin) 600 mg PO Q4H PRN PRN Reason: Pain Stop: 11/10/19 19:22 Last Admin: 10/13/19 10:12 Dose: 600 mg Documented by: Ketorolac Tromethamine (Toradol) 30 mg IV Q6H PRN PRN Reason: Pain Stop: 10/17/19 15:37 Last Admin: 10/12/19 15:05 Dose: 30 mg Documented by: Magnesium Hydroxide (Milk Of Magnesia) 30 ml PO HS PRN PRN Reason: Constipation Stop: 11/10/19 19:22 Meperidine HCl (Demerol) 50 - 75 mg IV Q4H PRN PRN Reason: Pain Stop: 10/26/19 15:36 Miscellaneous (Remove Nicoderm Patch) 1 ea N/A DAILY@0859 [facility] Stop: 11/11/19 08:58 Last Admin: 10/13/19 09:22 Dose: 1 ea Documented by: Nicotine (Nicoderm Cq) 21 mg TD QAM [facility] Stop: 11/10/19 22:59 Last Admin: 10/13/19 09:22 Dose: 21 mg Documented by: Ondansetron HCl (Zofran) 4 mg IV Q4H PRN PRN Reason: Nausea And Vomiting Stop: 11/10/19 19:22 Oxycodone/Acetaminophen (Percocet 5mg/325mg) 1 - 2 tab PO Q4H PRN PRN Reason: Pain Stop: 10/26/19 15:36 Prenat Multivit/Manager Facility/Iron/Folic Ac ( Vitamin) 1 tab PO DAILY@08 [facility] Stop: 11/11/19 07:59 Last Admin: 10/13/19 07:51 Dose: 1 tab Documented by: Sennosides (Senokot) 17.2 mg PO HS PRN PRN Reason: Constipation Stop: 11/10/19 19:22 Simethicone (Mylicon) 80 mg PO DAILY@08,13,17,21 [facility] Stop: 11/10/19 20:59 Last Admin: 10/13/19 07:51 Dose: 80 mg Documented by: Resident Activity Tracking Resident Involvement: Resident Care Provided Care Provided: Adult Hospital Medicine
--- NOTE | 2019-10-13 19:40 | Billing Data ---
Date of Service October 13, 2019 Coding Level of Care Code 71976 Subseq Hosp Care Lvl 1
--- NOTE | 2019-10-14 07:53 | Obstetrical Progress Note ---
Date of Service October 14, 2019 Additional information the patient's blood pressure has been somewhat labile postdelivery we had monitored over the night however she is reaching 160 on occasional systolics patient feels well with no headache and no right upper quadrant pain I will start her on labetalol 100 mg p.o. twice daily and we will see how she does today possibly discharge tomorrow again this will allow us time to determine whether she needs blood as well do with her ambulation and bleeding Results & Data ([facility]) Vital Signs (Past 12 Hours) Vital Signs Temp Pulse Resp BP 10/13/19 23:30 98.1 F 98 H 20 160/103 H
[2019-10-14] MEDS: SIMETHICONE 80 MG CHEW PO SCH ×2 (08:59→12:44)
[2019-10-14] MEDS ORDERED: LABETALOL HCL 100 MG TAB PO SCH (09:00)
[2019-10-14] MEDS: FERROUS SULFATE 325 MG TAB PO SCH (09:00)
[2019-10-14] MEDS: PRENATAL VITAMIN 1 TAB PO SCH (09:00)
[2019-10-14] MEDS: DOCUSATE SODIUM 100 MG CAP PO SCH (09:00)
[2019-10-14] MEDS: NICOTINE 21 MG/24 HR TDSY TD SCH (09:02)
[2019-10-14] MEDS: buprenorphine HCL 2 MG SUBL SL SCH (09:06)
[2019-10-14] MEDS: IBUPROFEN 600 MG TAB PO PRN (12:43)
--- NOTE | 2019-10-16 11:28 | Discharge Summary ---
Date of Service October 16, 2019 Admission Exam (Per Admitting) Constitutional WD/WN, vitals as above Eyes PERRL, conjunctivae normal, anicteric sclerae ENMT external ear and nose normal, oropharynx normal Neck trachea midline, no thyromegaly Respiratory normal respiratory effort and able to speak in complete sentences; no respiratory distress, no labored breathing and does not use accessory muscles Cardiovascular Rate/Rhythm: regular rate and regular rhythm Extremities: no calf tenderness and no pedal edema Chest (Breasts) Breast: normal inspection of breasts Gastrointestinal (Abdomen) Inspection/Auscultation: abdomen normal to inspection; abdomen not distended Musculoskeletal no cyanosis or clubbing, extremities motor strength 5/5 Skin no rashes, warm and dry Neurologic patellar DTR's 2+ bilat, sensation intact Psychiatric A+Ox3, euthymic affect Genitourinary Speculum/Bimanual Exam: no vaginal lesions, no vaginal bleeding and uterus nontender OB Exam Abdomen: + fundal height (at umbilicus), + vertex and + estimated weight (5-6lb) OB Exam Monitor Tracing: + external FHT monitor used, + external uterine monitor used and + category I Lymphatic no cervical or axillary lymphadenopathy Discharge Data Consultations 10/11/19 16:05 Consult Anesthesiology Stat 10/11/19 19:24 Consult Case Management - Discharge Planning Routine 10/11/19 19:25 Consult Hospitalist Stat Procedures Performed Operation Date: 10/11/19 18:00 Actual Procedures p Section in LD; delivery of live male child at 1837 - Grace Majano MD Operation Date: 10/12/19 07:30 <No data on this case meets the specified criteria> Hospital Course (1) Hepatitis C antibody test positive: Discovered during this admission, likely r/t history of IVDA and infected prior partner. Will see [facility] group as scheduled. Not by patient choice. (2) Previous delivery affecting , antepartum: Repeat performed, uncomplicated. Labile BP noted ; patient managed with oral labetalol and close outpatient f/u. (3) Drug dependence affecting , antepartum: To f/u with [facility] for ongoing treatment with her standard daily dose of 2mg. (4) No care in current : Lab panel done on admission. Oligohydramnios noted and indicated for immediate delivery. Coding Level of Care Code None Diagnoses Hepatitis C antibody test positive R76.8 Previous delivery affecting , antepartum O34.219 Drug dependence affecting , antepartum O99.320 No care in current O09.30
[2019-10-17 13:35] LABS: Chlamydia Trach RNA NOT DETECTED (NOT DETECTED); GC (Neis gonorrhoeae) RNA NOT DETECTED (NOT DETECTED)
== END 2019-10-14 17:05 | disposition home or self-care (01) | DRG 787 ==
LOC: 4S3 15:54 → 4S2 23:15 → EDSTATUS 10-12 08:50